=== PATIENT | female | born 1960 | race Caucasian/White ===

== ENCOUNTER → 2025-04-20 | Outpatient (CLI) | payer MEDICARE, SELFPAY ==
[2025-04-20 09:11] LABS: C-Reactive Protein 0.9 mg/dL (0.0-0.9); Free T4 (Free Thyroxine) 0.93 ng/dL (0.89-1.76); Thyroid Stimulating Hormone 1.27 uIU/mL (0.55-4.78)
[2025-05-04 23:32] LABS: Immunoglobulin G Subclass 1 700 mg/dL (382-929); Immunoglobulin G Subclass 2 489 mg/dL (241-700); Immunoglobulin G Subclass 3 38 mg/dL (22-178); Immunoglobulin G Subclass 4 39.3 mg/dL (4-86); Sm Antibody <1.0 NEG AI (<1.0 NEGATIVE)
[2025-05-05 06:56] LABS: ANA Pattern NUCLEAR, NUCLEOLAR; ANA Screen, IFA POSITIVE (NEGATIVE); CCP Antibody (IgG)* <16 Units; Cortisol,total,LC/MS/MS* 7.3 mcg/dL; DNA (ds) Antibody* <1 IU/mL; Immunoglobulin G Total 1288 mg/dL (600-1540); Sm/RNP Antibody <1.0 NEG AI (<1.0 NEGATIVE)
== END | disposition home or self-care (01) ==
LOC: COPL 06:59
PROVIDERS: PCP Family Medicine; Referring Provider Allergy & Immunology; Visit Provider Allergy & Immunology
DX: J45.40 Moderate persistent asthma, uncomplicated (principal); R53.83 Other fatigue; D83.8 Other common variable immunodeficiencies; J30.1 Allergic rhinitis due to pollen
CPT/HCPCS: 36415; 82533; 82784; 82787; 84439; 84443; 86038; 86140; 86200; 86225; 86235